=== PATIENT | female | born 1980 | race Caucasian/White ===

== ENCOUNTER 2016-12-30 10:25 | Inpatient (IN) | payer OTHER ==
[2016-12-30 12:35] VITALS: BMI 33.4
[2016-12-30 13:24] LABS: INR 1.01 (0.82-1.09); PROTHROMBIN TIME (PATIENT) 11.1 SEC (9.98-11.88)
[2016-12-30] MEDS ORDERED: DEXTROSE 5%-LACTATED RINGERS 1,000 ML IV SCH (13:30)
[2016-12-30] MEDS ORDERED: DINOPROSTONE 10 MG VAGINAL SUPPOSITORY VG ONE (13:35)
--- NOTE | 2016-12-30 13:43 | HP ---
Past Medical History - Primary Care Physician PCP:: Norm Lee - Admission Chief Complaint: 36 yo Po with at EGA 38w5d admitted for labor induction due to oligohydramnios History of Present Illness: Pt has been followed for decreased FRANK. 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: Alzheimer's, CVA, Dementia, Migraine, Multiple Sclerosis, Peripheral Neuropathy, Parkinson's, Seizure, Syncope, TIA, Vertigo, Other Cardiovascular: No: AFIB, Aneurysm, Aortic Insufficiency, Aortic Stenosis, CAD, CHF, Deep Vein Thrombosis, HTN, Hyperlipdemia, ID, Mitral Insufficiency, Mitral Stenosis, Murmur, Pulmonary Hypertension, Other Pulmonary: No: Asthma, Bronchitis, Cancer, COPD, O2 Dependent, Pneumonia, Previously Intubated, Pulmonary Embolus, Pulmonary Fibrosis, Sleep Apnea, Other Gastrointestinal: Yes: Inflamatory Bowel Disease Hepatobiliary: No: Cirrhosis, Cholelithiasis, Cholecystitis, Choledocholithiasis , Hepatitis A, Hepatitis B, Hepatitis C, Other Renal/: No: Renal Failure, Renal Inusuff, BPH, Cancer, Hematuria, Hemodialysis , Neurogenic Bladder, Renal Calculi, UTI, Other Reproductive: No: Ectopic , Endometriosis, Fibroids, PID, Polycystic Ovary Syndrome, Postmenopausal, Other ...: 1 ...Para: 0 ...Term: 0 ...: 0 ...Spon : 0 ...Induced : 0 ...Multiple Gestation: 0 ...LMP: 03/14/16 ... Weeks Gestation by Dates: 41.4 ...EDC by Dates: 12/19/16 ...EDC by Sono: 01/08/17 Heme/Onc: No: Anemia, B12 Deficiency, Bleeding Disorder, Cancer, Current Chemotherapy, Current Radiation Therapy, Hemochromatosis, Hypercoaguable State, Myeloproliferative Synd, Sickle Cell Disease, Sickle Cell Trait, Thrombocytopenia, Other Infectious Disease: No: AIDS, C-Diff, Herpes Zoster, HIV, MRSA, STD's, Tuberculosis, VREF, Other Psych: No: Addictions, Anxiety, Bipolar, Depression, Panic, Psychosis, Schizophrenia, Other Musculoskeletal: No: Bursitis, Chronic low back pain, Hemiparesis, Hemiplegia, Osteoarthritis, Paraplegia, Other Rheumatology: No: Fibromyalgia, Gout, Lupus, Rheumatoid Arthritis, Sarcoidosis, Vasculitis, Other ENT: No: Allergic Rhinitis, Sinusitis, Other Endocrine: No: Gualberto's Disease, Montesano's Disease, Diabetes Insipidus, Diabetes Mellitus, Hyperparathyroidism, Hyperthyroidism, Hypothyroidism, Osteopenia, SIADH, Other Dermatology: No: Basal Cell, Cellulitis, Eczema, Melanoma, Psoriasis, Squamous Cell, Other - Past Surgical History Past Surgical History: Yes: Tonsillectomy Hx Myomectomy: No Hx Transabdominal Cerclage: No Additional Surgical History: Breast augmentation - Smoking History Smoking history: Never smoked Have you smoked in the past 12 months: No Aproximately how many cigarettes per day: 2 - Alcohol/Substance Use Hx Alcohol Use: No Home Medications - Allergies Allergies/Adverse Reactions: Allergies Allergy/AdvReac Type Severity Reaction Status Date / Time erythromycin base Allergy Verified 12/30/16 11:44 [Erythromycin Base] - Home Medications Home Medications: Ambulatory Orders Mesalamine [Lialda] 4 tab PO TID 03/07/14 Vit #108/Iron/FA [ One Tablet] 1 each PO DAILY 12/30/16 Review of Systems - Review of Systems Constitutional: reports: No Symptoms Eyes: reports: No Symptoms HENT: reports: No Symptoms Neck: reports: No Symptoms Cardiovascular: reports: No Symptoms Respiratory: reports: No Symptoms Gastrointestinal: reports: No Symptoms Genitourinary: reports: No Symptoms Breasts: reports: No Symptoms Reported Musculoskeletal: reports: No Symptoms Integumentary: reports: No Symptoms Neurological: reports: No Symptoms Endocrine: reports: No Symptoms Hematology/Lymphatic: reports: No Symptoms Psychiatric: reports: No Symptoms Pain Intensity: 0 Physical Exam - Maternity Vital Signs: Vital Signs Temperature Pulse Rate 100 H 12/30/16 12:00 Respiratory Rate 20 12/30/16 12:00 Blood Pressure 121/68 12/30/16 12:00 O2 Sat by Pulse Oximetry (%) Constitutional: Yes: Well Nourished, No Distress, Calm Eyes: Yes: WNL, Conjunctiva Clear HENT: Yes: WNL, Atraumatic, Normocephalic Neck: Yes: WNL, Supple, Trachea Midline Cardiovascular: Yes: WNL, Regular Rate and Rhythm Lungs: Clear to auscultation, Normal air movement Breast(s): Yes: WNL - Abdominal Exam/OB Fundal Height: 39 Number of Fetuses: Single Presentation: Vertex Contractions: Yes Regularity: Irritability Intensity: Unaware Monitor Mode: External Heart Rate (range): 135 Heart Rate Location: Midline Category: I Accelerations: Uniform Decelerations: None - Vaginal Exam/OB Vaginal Bleediing: No Speculum Exam: No Dilatation (cm): 0.5 Effacement (%): 50 Amniotic Membrane Status: Intact Presentation: Vertex/Position Station: -4 (ADEQUATE GYNECOID PELVIMETRY) - Physical Exam Musculoskeletal: Yes: WNL Extremities: Yes: WNL Edema: Yes Edema: LLE: Trace, RLE: Trace Integumentary: Yes: WNL, Tattoos Deep Tendon Reflex Grade: Normal +2 ...Motor Strength: WNL Psychiatric: Yes: WNL, Alert, Oriented Hemorrhage Risk Assessment - Risk Factors Medium Risk Factors: Yes: None High Risk Factors: Yes: None Risk Score: 1 Risk Level: Medium Risk Imaging - Results Ultrasound: Report Reviewed Problem List - Problems (1) 38 weeks gestation of Assessment/Plan: The tracing is category I and does not need intervention. Code(s): Z3A.38 - 38 WEEKS GESTATION OF (2) Oligohydramnios in third trimester Assessment/Plan: Plan for labor induction. Cervical exam is not favorable. Plan to use Cervidil for Cervical ripening and then pitocin if not in labor. The risks, benefits, alternatives of Cervidil, pitocin, and labor induction discussed. We also discussed expectant management and section. I explained the risks of uterine tachysystole, distress, uterine rupture, infection, bleeding, pain , etc. The pt verbalized her understanding and requested to proceed with induction. Code(s): O41.03X0 - OLIGOHYDRAMNIOS, THIRD TRIMESTER, NOT APPLICABLE OR UNSP Qualifiers: Fetus number: single or unspecified fetus Qualified Code(s): O41.03X0 - Oligohydramnios, third trimester, not applicable or unspecified
[2016-12-30 15:53] LABS: HIV 1 & 2 AB NEGATIVE; HIV 1 AGp24 NEGATIVE
[2016-12-30] MEDS ORDERED: DEXTROSE 5%-LACTATED RINGERS 1,000 ML IV ONE (21:15)
[2016-12-31] MEDS ORDERED: OXYTOCIN 15 UNITS/ LR 250 ML 250 ML IVPB SCH (06:45)
[2016-12-31] MEDS ORDERED: TUBERCULIN PPD 5 TU/0.1ML SYRINGE (IN PATIENT USE ONLY) ID ONE (07:00)
[2016-12-31 09:04] LABS: CALCIUM 8.5 mg/dL (8.5-10.1); COCKROFT - GAULT 242.675; CREATININE 0.5 mg/dL (0.55-1.02)
--- NOTE | 2016-12-31 11:22 | PN ---
Ante-Partal Exam - Subjective Subjective: No complaints. Reports feeling cramps. Vital Signs: Vital Signs Temperature 98.4 F 12/31/16 08:00 Pulse Rate 98 H 12/31/16 08:00 Respiratory Rate 20 12/31/16 08:00 Blood Pressure 124/69 12/31/16 08:00 O2 Sat by Pulse Oximetry (%) Bleeding: No Headache: No Visual changes: No Right upper quadrant pain: No Pain (scale 1-10): 1 - Contractions Contractions: Yes Regularity: Irregular Intensity: Mild Monitor Mode: External - Exam during Labor Heart Rate: 140 Variability: Moderate Heart Rate Location: Midline Category: I Monitor Accelerations: Present Monitor Decelerations: None Exam: Vaginal Dilatation (cm): 1 Effacement (%): 30 Amniotic Membrane Status: Intact Presentation: Vertex Station: -3 - Intrapartum Hemorrhage Risk Medium Risk Factors: None High Risk Factors: None Risk Score: 0 Risk Level: Low Risk - Assessment/Plan Assessment/Plan: 36 yo P0 with at EGA 38w5d induced for oligohydramnios. The pt is s/p Cervidil, now pitocin to 8mU now. Fetus with Category I tracing. Continue indx.
--- NOTE | 2016-12-31 14:20 | PN ---
Ante-Partal Exam - Subjective Subjective: Pt is beginning to feel contractions Vital Signs: Vital Signs Temperature 98.5 F 12/31/16 14:00 Pulse Rate 88 12/31/16 14:00 Respiratory Rate 20 12/31/16 14:00 Blood Pressure 124/74 12/31/16 14:00 O2 Sat by Pulse Oximetry (%) Bleeding: No Headache: No Visual changes: No Right upper quadrant pain: No Pain (scale 1-10): 3 - Contractions Contractions: Yes Regularity: Regular Intensity: Mild/Mod Monitor Mode: External - Exam during Labor Heart Rate: 140 Variability: Moderate Heart Rate Location: Midline Category: I Monitor Accelerations: Present Monitor Decelerations: None Presentation: Vertex - Intrapartum Hemorrhage Risk Medium Risk Factors: None High Risk Factors: None Risk Score: 0 Risk Level: Low Risk - Assessment/Plan Assessment/Plan: 36 yo P0 undergoing labor induction. Fetus with Category I tacing Continue Pitocin titration Monitor labor progress. Pain mgt d/w pt.
--- NOTE | 2016-12-31 18:10 | PN ---
Ante-Partal Exam - Subjective Subjective: Pt is c/o pain. Vital Signs: Vital Signs Temperature 98.5 F 12/31/16 14:00 Pulse Rate 84 12/31/16 15:00 Respiratory Rate 20 12/31/16 15:00 Blood Pressure 133/71 12/31/16 15:00 O2 Sat by Pulse Oximetry (%) Bleeding: No Headache: No Visual changes: No Right upper quadrant pain: No Pain (scale 1-10): 9 - Contractions Contractions: Yes Regularity: Regular (2-3min) Intensity: Moderate - Exam during Labor Heart Rate: 130 Variability: Moderate Heart Rate Location: Midline Category: I Monitor Accelerations: Present Monitor Decelerations: None Exam: Vaginal Dilatation (cm): 1.5 Effacement (%): 80 Amniotic Membrane Status: Leaking Nitrazine Test: Positive Amniotic Fluid: Clear Presentation: Vertex Station: -2 - Intrapartum Hemorrhage Risk Medium Risk Factors: None High Risk Factors: None Risk Score: 0 Risk Level: Low Risk - Assessment/Plan Assessment/Plan: P0 induced for oligo. Fetus with Category I tracing. Fetus does not require intervention. Patient is requesting epidural. She had a Stadol infusion earlier. Anesthesia consult requested. Continue induction.
[2016-12-31] MEDS ORDERED: BUTORPHANOL TARTRATE 1 MG/ML VIAL IVPB ONE (18:26)
[2016-12-31] MEDS ORDERED: ELECTROLYTE-148 SOLN 1,000 ML IV SCH (18:30)
[2016-12-31] MEDS ORDERED: FENTANYL/BUPIVACAINE/NS/PF - PCEA - 50 ML DISP.SYRIN EP SCH ×2 (18:46→19:52)
[2017-01-01] MEDS ORDERED: METHYLERGONOVINE MALEATE 0.2 MG/1 ML AMP IM PRN (00:20)
[2017-01-01] MEDS ORDERED: BENZOCAINE 20% 57 GM BOTTLE TP PRN (00:20)
[2017-01-01] MEDS ORDERED: BENZOCAINE 28 GM HEMORRHOIDAL OINTMENT TP PRN (00:20)
[2017-01-01] MEDS ORDERED: BISACODYL 10 MG SUPP.RECT RC PRN (00:20)
[2017-01-01] MEDS ORDERED: WITCH HAZEL 50% (TUCKS) 40 PAD/JAR PAD TP PRN (00:20)
[2017-01-01] MEDS ORDERED: D5W-LR W/ 20 UNITS OXYTOCIN 1,000 ML IV SCH (00:30)
[2017-01-01 01:57] LABS: MCHC 32.6 g/dl (32.0-36.0); MEAN CELL VOLUME 91.9 fl (80-96); MEAN PLT VOLUME 8.5 fl (7.5-11.1); PLATELET COUNT 248 K/MM3 (134-434); WHITE BLOOD COUNT 23.5 K/mm3 (4.0-10.0)
[2017-01-01] MEDS: ACETAMINOPHEN 325 MG TABLET (FP) PO PRN ×3 (05:53→20:11)
[2017-01-01] MEDS: IBUPROFEN 600 MG TABLET (FP) PO PRN ×3 (05:56→20:12)
[2017-01-01 06:21] LABS: PLATELET ESTIMATE ADEQUATE (NORMAL)
--- NOTE | 2017-01-01 06:41 | PN ---
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
[2017-01-01] MEDS: PRENATAL VITAMINS W/ FOLIC ACID TABLET (FP) PO SCH (09:40)
[2017-01-01 10:16] LABS: BASOPHIL 0.2 % (0-2.0); EOSINOPHIL 0.1 % (0-4.5); MCH 30.3 pg (25.7-33.7); MCHC 33.1 g/dl (32.0-36.0); MEAN CELL VOLUME 91.7 fl (80-96); MEAN PLT VOLUME 8.3 fl (7.5-11.1); NEUTROPHILS 81.2 % (42.8-82.8); PLATELET COUNT 226 K/MM3 (134-434); RDW 13.8 % (11.6-15.6); WHITE BLOOD COUNT 19.3 K/mm3 (4.0-10.0)
[2017-01-01] MEDS ORDERED: MESALAMINE PO SCH (14:00)
--- NOTE | 2017-01-01 21:11 | PN ---
Post Progress Note - Subjective Subjective: No complaints Post Day: 1 Type of Delivery: Vital Signs: Vital Signs Temperature 97.9 F 01/01/17 20:15 Pulse Rate 109 H 01/01/17 20:15 Respiratory Rate 18 01/01/17 20:15 Blood Pressure 110/64 01/01/17 20:15 O2 Sat by Pulse Oximetry (%) 100 01/01/17 01:15 Breast Exam: Yes: Soft Uterus: Yes: Fundus Firm, Fundus below umbilicus, Non-tender Abdomen/GI: Yes: Abdomen soft, Passing flatus, Tolerating PO Lochia: Yes: Rubra Lochia, amount: Small Extremities: Yes: Calves non-tender, Edema Perineum: Yes: Intact Activity: Ambulating - Labs Labs: CBC WBC 19.3 K/mm3 (4.0-10.0) H 01/01/17 09:20 RBC 3.43 M/mm3 (3.60-5.2) L 01/01/17 09:20 Hgb 10.4 GM/dL (10.7-15.3) L 01/01/17 09:20 Hct 31.4 % (32.4-45.2) L 01/01/17 09:20 MCV 91.7 fl (80-96) 01/01/17 09:20 MCHC 33.1 g/dl (32.0-36.0) 01/01/17 09:20 RDW 13.8 % (11.6-15.6) 01/01/17 09:20 Plt Count 226 K/MM3 (134-434) 01/01/17 09:20 MPV 8.3 fl (7.5-11.1) 01/01/17 09:20 Neutrophils % 81.2 % (42.8-82.8) 01/01/17 09:20 Lymphocytes % 10.4 % (8-40) D 01/01/17 09:20 Monocytes % 8.1 % (3.8-10.2) D 01/01/17 09:20 Eosinophils % 0.1 % (0-4.5) 01/01/17 09:20 Basophils % 0.2 % (0-2.0) 01/01/17 09:20 Band Neutrophils 5.0 % (0-10) 01/01/17 01:00 Platelet Estimate Adequate (NORMAL) 01/01/17 01:00 RBC Morphology Appears normal 01/01/17 01:00 Problem List - Problems (1) (normal spontaneous vaginal delivery) Code(s): O80 - ENCOUNTER FOR FULL-TERM UNCOMPLICATED DELIVERY (2) care following vaginal delivery Code(s): Z39.2 - ENCOUNTER FOR ROUTINE FOLLOW-UP Assessment/Plan 36 yo P1 s/p , doing well, stable. care and instructions discussed. Plan to d/c home tomorrow if stable
[2017-01-02 07:14] LABS: BASOPHIL 0.4 % (0-2.0); EOSINOPHIL 1.8 % (0-4.5); MCH 30.7 pg (25.7-33.7); MCHC 33.2 g/dl (32.0-36.0); MEAN CELL VOLUME 92.4 fl (80-96); MEAN PLT VOLUME 7.8 fl (7.5-11.1); NEUTROPHILS 71.9 % (42.8-82.8); PLATELET COUNT 190 K/MM3 (134-434); RDW 14.1 % (11.6-15.6); WHITE BLOOD COUNT 11.7 K/mm3 (4.0-10.0)
[2017-01-02] MEDS: PRENATAL VITAMINS W/ FOLIC ACID TABLET (FP) PO SCH (09:04)
[2017-01-02 09:12] VITALS: BP 111/75; PULSE 95; TEMP 98.4
[2017-01-02] MEDS: ACETAMINOPHEN 325 MG TABLET (FP) PO PRN (10:41)
[2017-01-02] MEDS: IBUPROFEN 600 MG TABLET (FP) PO PRN (10:42)
[2017-01-02] MEDS ORDERED: SENNOSIDES/DOCUSATE COMBO (SENNA PLUS) TABLET (UD) PO PRN (22:00)
== END 2017-01-02 11:36 | disposition home or self-care (01) | DRG 775 ==
LOC: JDEL 10:25 → JLDR 11:00 → J3W 01-01 01:40
PROVIDERS: ADMIT Obstetrics & Gynecology; ATTEND Obstetrics & Gynecology
PROC: 10E0XZZ Delivery of Products of Conception, External Approach (ICD-10-PCS; principal; 2016-12-31)
PROC: 0KQM0ZZ Repair Perineum Muscle, Open Approach (ICD-10-PCS; 2016-12-31)
DX: O41.03X0 Oligohydramnios, third trimester, not applicable or unspecified (principal); O70.1 Second degree perineal laceration during delivery; Z3A.38 38 weeks gestation of pregnancy; Z37.0 Single live birth
CPT/HCPCS: 36415; 59025; 59409; 80048; 85025; 85027; 85610; 85730; 86593; 86850; 86900; 86901; 87389

== ENCOUNTER 2018-01-01 01:16 | Emergency (ER) | payer OTHER ==
[2018-01-01 01:24] VITALS: BMI 29.6
[2018-01-01] MEDS ORDERED: HYOSCYAMINE SULFATE 0.125 MG *ODT ONE (01:28)
[2018-01-01] MEDS ORDERED: LIDOCAINE VISCOUS 2% ORAL/TOP 20 ML UNIT-DOSE CUP ONE (01:28)
[2018-01-01] MEDS ORDERED: MAG HYDROX/AL HYDROX/SIMETH 30 ML UNIT-DOSE CUP ONE (01:28)
[2018-01-01] MEDS ORDERED: LIDOCAINE VISCOUS 2% ORAL/TOP 20 ML UNIT-DOSE CUP MM ONE (01:34)
[2018-01-01] MEDS ORDERED: HYOSCYAMINE SULFATE 0.125 MG *ODT PO ONE (01:34)
[2018-01-01] MEDS ORDERED: MAG HYDROX/AL HYDROX/SIMETH 30 ML UNIT-DOSE CUP PO ONE (01:34)
--- NOTE | 2018-01-01 01:37 | PDOC ---
History of Present Illness - General Chief Complaint: Pain, Acute Stated Complaint: BURNING CHEST DISCOMFORT Time Seen by Provider: 01/01/18 01:18 History Source: Patient Exam Limitations: No Limitations - History of Present Illness Initial Comments: 01/01/18 01:29 This is a 37-year-old female who comes in complaining of acute onset of a burning type substernal discomfort this evening. Patient said there is some radiation to her back. Patient denies any nausea, diaphoresis, shortness of breath, dizziness. Patient does have history of similar episodes in the past that responded to antacids. Patient said she's taken Tums and Maalox and Zantac. Patient said she is not gotten any relief. Patient that she is otherwise healthy denies any history of coronary artery disease or risk factors for coronary artery disease. Patient parents are still living at her brother has hypertension but otherwise no coronary artery disease. PAST MEDICAL HISTORY: no significant history PAST SURGICAL HISTORY: no significant history FAMILY HISTORY: no pertinant history SOCIAL HISTORY: Pt lives with family and is employed. MEDICATIONS: reviewed ALLERGIES: As per nursing notes Review of Systems General: No fevers or chills, no weakness, no weight loss HEENT: No change in vision. No sore throat,. No ear pain CardioVascular: + Burning type so I checked I chest pain , no shortness of breath Respiratory:No cough, or wheezing. Gastrointestinal: no nausea, vomitting, diarrhea or constipation, No rectal bleeding Genitourinary: No dysuria, hematuria, or frequency Musculoskeletal: No joint or muscle pain or swelling Neurologic: No headache, vertigo, dizziness or loss of consciousness Psychiatric: nor depression Skin: No rashes or easy bruising Endocrine: no increased thirst or abnormal weight change Allergic: no skin or latex allergy All other systems reviewed and normal Exam: General: Well-nourished well-developed individual, no acute distress HEENT: Throat: Normal, tonsils normal, no erythema or exudate Neck: Supple, no meningeal signs, no lymphadenopathy Eyes::Pupils equal reactive and round, extraocular motion intact Chest: Cardiac: S1-S2 normal, regular rate and rhythm, no murmurs rubs or gallops Respiratory: Lungs clear to auscultation bilateral Abdomen: Soft, nondistended, normal bowel sounds, nontender to palpation diffusely rectal: Rectal exam nontender with grossly bloody stool Extremities: Warm, dry, no cyanosis, clubbing, or edema Skin: No rashes Neuro: Alert and oriented x3, CN II - XII intact, nonfocal exam with normal strength, normal sensation, normal reflexes, normal gait, Psych: Normal mood and affect 02:00 Patient still is very uncomfortable so well initiated workup including CBC, comp , lipase and chest x-ray 01/01/18 05:00 CT scan" IMAGES: 510 EXAM: CT CHEST CT WITH CONTRAST HISTORY: Concern for aneurysm COMPARISON: None. FINDINGS: Heart:: Normal Pericardium: not thickened Thoracic aorta and great vessels: Normal Superior vena cava and inferior vena cava: Normal Pulmonary arteries: Normal Thoracic esophagus: Normal Mediastinal lymph nodes: Normal Central airways: Normal Lungs: clear without focal consolidation Pleural spaces: Normal with no pneumothorax or pleural fluid Chest wall: There are bilateral breast implants Abdomen Liver: Normal Spleen: Normal Pancreas: Normal Gallbladder: Normal Stomach: Normal Small bowel: Some segments of small bowel appear mildly thickened in the left upper quadrant but no pneumatosis or obstruction Large bowel: Visualized portions of the large bowel are normal Appendix: Not visualized Adrenals:Normal Kidneys: Normal Vascular: Normal Lymphatic: There are prominent lymph nodes in the right lower quadrant mesenteric fat. The largest node measures 1.5 x 0.8 cm. Peritoneal: No free peritoneal air or fluid General: Skeletal: Normal IMPRESSION: Mesenteric adenitis may be related to nonspecific enteritis No pulmonary embolism. Normal aorta THIS DOCUMENT HAS BEEN ELECTRONICALLY SIGNED Geovani Dominguez MD 01/01/2018 05:01 LUC Lucas Please call Imaging Control Systems Drafting Officer [phone] ([phone]) with questions. Geovani Dominguez MD Assessment and plan: This is a 37-year-old female who comes in complaining of a burning pain in her chest area. Patient had a workup that included a very mildly elevated white count and otherwise normal. Patient was given antacids and medication for the pain with improvement in pain but not complete resolution of the pain. Patient had a CAT scan that was normal with the exception of some mild adenitis. He did have some blood in her stool however no anemia no bright red blood per rectum. Patient will be discharged home and told to follow-up with her primary care doctor today. Patient given copies of her blood work and CAT scan reports. Past History - Past Medical History Allergies/Adverse Reactions: Allergies Allergy/AdvReac Type Severity Reaction Status Date / Time erythromycin base Allergy Verified 01/01/18 01:18 [Erythromycin Base] Home Medications: Ambulatory Orders Mesalamine [Lialda] 4 tab PO TID 03/07/14 Asthma: No Cancer: No Cardiac Disorders: No COPD: No Diabetes: No GI Disorders: Yes (COLITIS) HTN: No Seizures: No Thyroid Disease: No - Suicide/Smoking/Psychosocial Hx Smoking History: Former smoker Have you smoked in the past 12 months: No Number of Cigarettes Smoked Daily: 0 If you are a former smoker, when did you quit?: 3 Information on smoking cessation initiated: No 'Breaking Loose' booklet given: 03/07/14 Hx Alcohol Use: Yes (OCCAS) Drug/Substance Use Hx: No Substance Use Type: None Hx Substance Use Treatment: No *Physical Exam - Vital Signs Last Vital Signs Temp Pulse Resp BP Pulse Ox 99.4 F 102 H 18 129/91 100 01/01/18 01:20 01/01/18 01:20 01/01/18 01:20 01/01/18 01:20 01/01/18 01:20 ED Treatment Course - LABORATORY CBC & Chemistry Diagram: 01/01/18 02:10 01/01/18 02:10 *DC/Admit/Observation/Transfer Diagnosis at time of Disposition: Gastritis Qualifiers: Gastritis type: unspecified gastritis Chronicity: unspecified Gastritis bleeding: without bleeding Qualified Code(s): K29.70 - Gastritis, unspecified, without bleeding - Discharge Dispostion Disposition: HOME Condition at time of disposition: Stable Admit: No - Referrals - Patient Instructions Additional Instructions: It is important that you follow-up with your primary care doctor today.. Your stool did show positive for blood so he to have that further evaluated since you're colitis is not acting up at this time. Return to the emergency department immediately with ANY new, persistent or worsening symptoms. Continue any medications as previously prescribed by your physician. You should follow up with your primary doctor as soon as possible regarding today's emergency department visit. . Please make sure your doctor reviews the results of your emergency evaluation. Thank you for coming to the Emergency Department today for your care. It was a pleasure to see you today. Please note that your evaluation is INCOMPLETE until you follow-up with your doctor. - Post Discharge Activity Forms/Work/School Notes: Back to Work
[2018-01-01] MEDS ORDERED: ALPRAZolam 1 MG TABLET PO STA (02:05)
[2018-01-01] MEDS ORDERED: SODIUM CHLORIDE 1,000 ML IV ONE (02:05)
[2018-01-01] MEDS ORDERED: FAMOTIDINE 20 MG/50 ML IVPB 20 MG/50 ML MG IVPB ONE (02:16)
[2018-01-01] MEDS ORDERED: ALPRAZolam 0.25 MG TABLET ONE (02:16)
[2018-01-01 02:44] LABS: BASO % 0.5 % (0-2.0); EOS % 1.1 % (0-4.5); HEMATOCRIT 35.3 % (32.4-45.2); HEMOGLOBIN 12.2 GM/dL (10.7-15.3); LYMPH % 7.5 % (8-40); MCH 30.6 pg (25.7-33.7); MCHC 34.6 g/dl (32.0-36.0); MEAN CELL VOLUME 88.4 fl (80-96); MEAN PLT VOLUME 7.9 fl (7.5-11.1); MONO % 7.6 % (3.8-10.2); NEUT % 83.3 % (42.8-82.8); PLATELET COUNT 285 K/MM3 (134-434); RBC 3.99 M/mm3 (3.60-5.2); RDW 13.2 % (11.6-15.6); WHITE BLOOD COUNT 10.3 K/mm3 (4.0-10.0)
[2018-01-01 02:47] LABS: URINE APPEARANCE CLEAR; URINE BILIRUBIN NEGATIVE (<2.0 mg/dL); URINE BLOOD NEGATIVE (NEGATIVE); URINE COLOR STRAW; URINE GLUCOSE (UA) NEGATIVE (NEGATIVE); URINE KETONE NEGATIVE (NEGATIVE); URINE LEUK ESTERASE NEGATIVE (NEGATIVE); URINE NITRITE NEGATIVE (NEGATIVE); URINE PROTEIN NEGATIVE (NEGATIVE); URINE UROBILINOGEN NEGATIVE mg/dL (0.2-1.0)
[2018-01-01] MEDS ORDERED: morphine CARPU-JECT 4 MG/1 ML DISP.SYRIN IVPUSH ONE (02:49)
[2018-01-01] MEDS ORDERED: morphine SULFATE 4 MG/ML VIAL ONE (02:49)
[2018-01-01 03:14] LABS: ALBUMIN 3.8 g/dl (3.4-5.0); ALK PHOS 110 U/L (45-117); ANION GAP 7 (8-16); BILIRUBIN,TOTAL 0.4 mg/dL (0.2-1.0); BLOOD UREA NITROGEN 13 mg/dL (7-18); CALCIUM 9.1 mg/dL (8.5-10.1); CHLORIDE 103 mmol/L (98-107); CO2 29 mmol/L (21-32); CREATININE 0.8 mg/dL (0.55-1.02); GLUCOSE,RANDOM 106 mg/dL (74-106); POTASSIUM 4.3 mmol/L (3.5-5.1); SGOT/AST 15 U/L (15-37); SGPT/ALT 9 U/L (12-78); SODIUM 139 mmol/L (136-145); TOT PROT 7.6 g/dl (6.4-8.2)
[2018-01-01 04:40] VITALS: BP 136/98; PULSE 98; TEMP 98.5
[2018-01-01] MEDS ORDERED: FAMOTIDINE IV 20 MG/12 ML VIAL IVPUSH SCH (10:00)
--- NOTE | 2018-01-01 22:04 | EKG ---
Test Reason : Blood Pressure : / mmHG Vent. Rate : 102 BPM Atrial Rate : 102 BPM P-R Int : 148 ms QRS Dur : 072 ms QT Int : 348 ms P-R-T Axes : 070 047 033 degrees QTc Int : 453 ms \ SINUS TACHYCARDIA WITH OCCASIONAL PREMATURE VENTRICULAR COMPLEXES OTHERWISE NORMAL ECG NO PREVIOUS ECGS AVAILABLE Confirmed by FREDERIC LOU, CATHERINE ([id number]) on 01/01/2018 10:04:10 PM Referred By: MD MYRICK Confirmed By:CATHERINE DE LA GARZA MD
== END 2018-01-01 05:14 | disposition home or self-care (01) ==
LOC: FER 01:16
PROC: 3E033GC Introduction of Other Therapeutic Substance into Peripheral Vein, Percutaneous Approach (ICD-10-PCS; principal; 2018-01-01)
PROC: 3E033NZ Introduction of Analgesics, Hypnotics, Sedatives into Peripheral Vein, Percutaneous Approach (ICD-10-PCS; 2018-01-01)
PROC: 3E0337Z Introduction of Electrolytic and Water Balance Substance into Peripheral Vein, Percutaneous Approach (ICD-10-PCS; 2018-01-01)
DX: K29.70 Gastritis, unspecified, without bleeding (principal); Z72.0 Tobacco use
CPT/HCPCS: 36415; 71045-TC-FY; 71260-TC; 74160-TC; 80053; 81003; 82272; 82550; 83690; 84484; 84703; 85025; 93005; 99282-25; J7030